=== PATIENT | male | born 1985 | race Caucasian/White ===

== ENCOUNTER 2018-12-06 18:29 | Observation (INO) | payer OTHER, MEDICAID, SELFPAY ==
[2018-12-06] VITALS (8 sets, daily range): BP systolic 120–150; BP diastolic 93–107; PULSE 90–113; RESP 15–20; TEMP 36.7; O2SAT 94–99; BMI 34.7
--- NOTE | 2018-12-06 18:43 | ED.RN ---
RN CALLED FOR EKG, PULLED OLD EKGS FOR
--- NOTE | 2018-12-06 19:11 | EKG12_ITS ---
Test Reason : CP Blood Pressure : / mmHG Vent. Rate : 100 BPM Atrial Rate : 100 BPM P-R Int : 156 ms QRS Dur : 096 ms QT Int : 336 ms P-R-T Axes : 037 029 024 degrees QTc Int : 433 ms Normal sinus rhythm Normal ECG Confirmed by KATY BARILLAS ([id number]), editor magazine SKYLER DAVIS ([id number]) on 12/09/2018 10:14:54 AM Referred By: CG Confirmed By:KATY BARILLAS
--- NOTE | 2018-12-06 19:11 | RAD_ITS ---
STUDY: X-RAY CHEST REASON FOR EXAM: Male, 33 years old. 5 TECHNIQUE: COMPARISON: None. FINDINGS: The lungs are clear and expanded. There is no demonstrated pleural abnormality. Normal size heart. Normal mediastinum and michael. Normal visualized pulmonary arteries. Normal visualized aortic arch and descending thoracic aorta. Normal visualized thoracic spine. Normal visualized ribs, clavicles, and shoulders. There is no demonstrated abnormality of the visualized soft tissue structures of the upper abdomen. RAD/Chest 1 View (Portable) IMPRESSION: Normal x-ray examination of the chest. Electronically Signed: Juan Mca DO at 19:36 EDT Tel [phone], Service support ,
--- NOTE | 2018-12-06 19:13 | ED.VISSUMM ---
- ER Visit Summary Date of Service: 12/06/18 Chief Complaint: Chest pain History of Present Illness: The patient is a 33 M presenting with chest pain. He states that started 3 days ago. Pain has been constant. He states it is in his right and left chest. He denies nausea, vomiting, diaphoresis, shortness of breath. He is tried no medication at home. He is a history of hypertension. He is noncompliant with medications. He is also a smoker. No other CAD risk factors. No PE/DVT risk factors. Physical Examination: Vitals are stable. Patient is afebrile. Alert no acute distress. HEENT exam is unremarkable. Neck is supple. Lungs are clear and equal bilaterally. Chest wall tenderness to palpation with no crepitus Heart is regular and tachycardic Abdomen is soft nontender nondistended. Extremities are unremarkable. Skin is warm and dry. No focal neurologic deficit. Remainder of exam is unremarkable. Emergency Department Course and Treatment: Patient was given IV fluids, aspirin, morphine, Zofran. Chest x-ray shows no acute process. EKG is sinus rhythm rate of 100 with no acute ischemic changes. CBC, chemistries unremarkable. D-dimer is 0.52. Troponin is negative. Due to elevated d-dimer, CTA chest is obtained and shows no acute process. Alcohol level 502. Repeat troponin negative. He was given Toradol IV, continues to complain of chest wall pain. He was given Valium. On reevaluation, patient is feeling improved. He is interested in alcohol detox. He states he was previously in detox and started drinking again recently. He denies history of alcohol withdrawal seizures. Discussed with the hospitalist for admission. Disposition: Admission Impression: Chest pain, alcohol abuse This note was generated with Volumental dictation software. It may contain incorrect words, spelling, and punctuation that were not noted in review of the chart prior to signing ED Disposition - Plan for ED Patient: Referrals: Care Physician,No Primary [Primary Care Provider] -
[2018-12-06] MEDS: 0.9% Normal Saline 1,000 ML 1000 ML IV (19:23)
[2018-12-06] MEDS: Ondansetron 4 MG/2 ML Vial IV (19:23)
[2018-12-06] MEDS: Morphine 4 MG/ML Syringe IV (19:24)
[2018-12-06] MEDS: Aspirin 81 MG TAB.CHEW 324 MG PO (19:25)
[2018-12-06 19:33] LABS: Basophil# 0.09 X10^3/uL; Basophil% 1.3 % (0-1); Eosinophil# 0.15 X10^3/uL; Eosinophils% 2.2 % (0-5); Hematocrit 44.7 % (40-54); Hemoglobin 15.4 g/dL (13.0-16.5); Lymphocyte % 37.3 % (19-41); Mean Corp Hgb Conc 34.5 g/dL (32-36); Mean Corpuscular Hgb 33.8 pg (27.0-32.0); Mean Platelet Vol. 9.1 fl (6.2-12.0); Monocyte# 0.98 X10^3/uL; Monocyte% 14.6 % (0-10); NRBC Flagged by Analyzer 0 % (0-5); Neutrophil # 2.98 X10^3/uL (2.7-7.7); Neutrophil % 44.5 % (47-70); Platelet Count 201 K/mm3 (150-450); RBC Distribution Width CV 12.9 % (11.6-14.6); Red Blood Count 4.56 M/mm3 (4.6-6.2); White Blood Count 6.7 K/mm3 (4.4-11.0)
[2018-12-06 19:46] LABS: D-Dimer Quantitative (DVT/PE) 0.52 FEU/ug/m (0.27-0.49)
--- NOTE | 2018-12-06 19:47 | ED.RN ---
CRITICAL LAB VALUE RECEIVED FROM LAB. D-DIMER 0.52. DR. LIN NOTIFIED.
[2018-12-06 19:57] LABS: Anion Gap 9 (5-15); BUN 11 mg/dL (7-18); BUN/Creat Ratio 11.6 RATIO (10-20); Calcium,Total 9.2 mg/dL (8.5-10.1); Chloride 109 mmol/L (98-107); Creatinine, Serum 0.95 mg/dL (0.70-1.30); EST Glomerular Filtration Rate 96 mL/min (>60); Est Glom Filt Rate - Afr Amer 117 mL/min (>60); Glucose 104 mg/dL (74-106); Potassium 3.5 mmol/L (3.5-5.1); Sodium Level 143 mmol/L (136-145)
--- NOTE | 2018-12-06 19:57 | CT_ITS ---
STUDY: CTA CHEST REASON FOR EXAM: Male, 33 years old. Dimer. Chest pain for 3 days. RADIATION DOSAGE (If Supplied By Facility): CTDIvol = ( 9.92 ) mGy, DLP = ( 536.85 ) mGycm TECHNIQUE: The examination was performed with the intravenous administration of IV 100mL [id number]-370 100ML. Post-processing of the angiographic images was performed, with multiplanar reformation and 3D reconstruction. Individualized dose optimization techniques were used for this CT. COMPARISON: Chest, December 06, 2018. FINDINGS: Normal enhancement of the main pulmonary artery and right and left pulmonary arteries. Normal enhancement of the bilateral peripheral pulmonary arteries. There is no demonstrated pulmonary embolism. Normal thoracic aorta and visualized great vessels. There is no demonstrated aortic dissection. Normal heart and pericardium. There are calcifications of the coronary arteries. Normal mediastinum. Normal hilar regions. Normal visualized trachea and bronchi. The lungs are well expanded. Normal pulmonary parenchyma. Normal pleura. Question minimal gynecomastia. The chest wall is otherwise unremarkable. Normal osseous structures. There is diffuse fatty infiltration of the liver which appears mildly enlarged. Abdomen is otherwise unremarkable. CT/CTA Chest W/WO Contrast IMPRESSION: 1. Normal CTA chest examination, without a demonstrated pulmonary embolism or arterial dissection. 2. Enlarged fatty infiltrated liver. Electronically Signed: Juan Mac DO at 20:37 EDT Tel [phone], Service support ,
[2018-12-06] MEDS: Ketorolac 30 MG/ML Syringe IV (20:32)
--- NOTE | 2018-12-06 20:47 | ED.RN ---
ALCOHOL LEVEL 502, DR. LIN AWARE.
[2018-12-06] MEDS: diazePAM 5 MG Tablet PO (21:46)
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
[2018-12-07] VITALS (9 sets, daily range): BP systolic 127–167; BP diastolic 86–106; PULSE 83–110; RESP 16–24; TEMP 36.4–37.1; O2SAT 96–100; BMI 34.1
[2018-12-07] MEDS: 0.9% Normal Saline 1,000 ML 999 ML IV ×2 (01:52→02:54)
[2018-12-07 02:00] LABS: Magnesium 1.8 mg/dL (1.6-2.6); Phosphorus 2.9 mg/dL (2.5-4.9)
[2018-12-07 02:02] LABS: AST(SGOT) 158 U/L (15-37); Alanine Aminotransfer ALT/SGPT 206 U/L (16-61); Albumin, Serum 3.7 g/dL (3.2-5.0); Alkaline Phosphatase 70 U/L (45-117); Bilirubin, Direct 0.24 mg/dL (0.00-0.30); Globulin 3.2 g/dL (2.2-4.2); Protein, Total 6.9 g/dL (6.4-8.2)
[2018-12-07] MEDS: Ibuprofen 600 MG Tablet PO ×3 (02:05→23:43)
[2018-12-07] MEDS: traZODone 50 MG Tablet PO ×2 (02:15→22:03)
[2018-12-07] MEDS: Methocarbamol 750 MG Tablet PO ×3 (02:15→18:44)
[2018-12-07] MEDS: 0.9% Normal Saline 1,000 ML 150 ML IV ×3 (04:03→18:35)
[2018-12-07] MEDS: chlordiazePOXIDE 25 MG Capsule PO ×4 (04:07→22:02)
[2018-12-07 07:15] LABS: ALB/GLOB Ratio 1.2 RATIO (0.9-2.4); AST(SGOT) 122 U/L (15-37); Alanine Aminotransfer ALT/SGPT 169 U/L (16-61); Albumin, Serum 3.1 g/dL (3.2-5.0); Alkaline Phosphatase 78 U/L (45-117); Anion Gap 10 (5-15); BUN 9 mg/dL (7-18); BUN/Creat Ratio 17.2 RATIO (10-20); Calcium,Total 7.6 mg/dL (8.5-10.1); Chloride 110 mmol/L (98-107); Creatinine, Serum 0.52 mg/dL (0.70-1.30); EST Glomerular Filtration Rate 192 mL/min (>60); Est Glom Filt Rate - Afr Amer 233 mL/min (>60); Estimated Creatinine Clearance 193.65 ml/min; Globulin 2.5 g/dL (2.2-4.2); Glucose 112 mg/dL (74-106); Potassium 3.4 mmol/L (3.5-5.1); Protein, Total 5.6 g/dL (6.4-8.2); Sodium Level 143 mmol/L (136-145)
[2018-12-07] MEDS: Multivitamins,Therapeutic Tablet 1 TABLET PO (10:07)
[2018-12-07] MEDS: Folic Acid 1 MG Tablet PO (10:07)
[2018-12-07] MEDS: Thiamine Hydrochloride 100 MG Tablet PO (10:07)
[2018-12-07] MEDS: hydrOXYzine PAM 25 MG Capsule 50 MG PO ×2 (10:08→18:44)
[2018-12-07] MEDS: Dicyclomine 10 MG Capsule 20 MG PO ×2 (10:08→18:44)
[2018-12-07 10:12] LABS: Amphetamine Urine VISTA NEGATIVE (<1000 ng/mL); Barbiturate Urine VISTA NEGATIVE (< 200 ng/mL); Benzodiazepine Urine VISTA POSITIVE (< 200 ng/mL); Cocaine Urine VISTA POSITIVE (< 300 ng/mL); Ecstacy Urine VISTA NEGATIVE (< 500 ng/mL); Methadone Urine VISTA NEGATIVE (< 300 ng/mL); PCP Urine VISTA NEGATIVE (< 25 ng/mL); THC Urine VISTA NEGATIVE (< 50 ng/mL); Vista UDS pH Range 5
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
--- NOTE | 2018-12-07 14:39 | PCM.PROGNOTE ---
Subjective: Chief complaint: Follow-up after admission for acute alcohol intoxication/withdrawal as well as atypical chest pressure. Patient seen and examined. No acute events overnight. Today, he is feeling better, chest pressure and discomfort improved. He still having hand tremors but he was able to sleep early this morning. Denies nausea or vomiting. Reported mild abdominal pain and cramps. His blood pressure has been slightly elevated, other vital signs are stable. - Physical Exam General: Alert, Oriented x3, Cooperative, No apparent distress, - - Hand tremors. HEENT: Atraumatic, PERRLA, EOMI, Normocephalic Oral: Moist Mucosa, No Gingival or Mucosal Lesions/ Ulcerations Neck: Supple, No JVD, Negative Carotid Bruits, Trachea Midline, Thyroid Normal Size and Texture Lungs: Clear to auscultation, Normal air movement, No rhonchi, No wheeze, No rales Cardiovascular: Regular rate, Regular Rhythm, Normal S1, Normal S2, PMI Normal Abdomen: Bowel Sounds Present, Soft, Non Tender, Non-Distended, No Hepato-splenomegaly, Obese Extremities: No clubbing, No cyanosis, No edema Skin: No rashes, No breakdown Lymphatic: No Cervical, Supraclavicular, or Inguinal Adenopathy Neurological: Cranial nerves II-XII grossly intact, Motor Exam 5/5 strength throughout Psych/Mental Status: Normal Affect, Appropriate, Alert and oriented to time, place, person, mood and affect Vital Signs Temp Pulse Resp BP Pulse Ox 97.6 F L 84 16 144/99 H 97 12/07/18 10:00 12/07/18 10:00 12/07/18 10:00 12/07/18 10:00 12/07/18 10:00 Oxygen Delivery Method Room Air Weight: 224 lb 6.889 oz Body Mass Index (BMI) 34.1 Intake and Output for Last 24 Hours 12/05/18 12/06/18 12/07/18 23:59 23:59 23:59 Intake Total 1000 / 1000 3407.5 / 3407.5 Balance 1000 / 1000 3407.5 / 3407.5 Laboratory Tests Past 24 Hrs 12/06/18 12/06/18 12/06/18 18:30 18:30 18:30 WBC 6.7 RBC 4.56 L Hgb 15.4 Hct 44.7 MCV 98.0 H MCH 33.8 H MCHC 34.5 RDW Std Deviation 46.0 H RDW Coeff of Alexandrea 12.9 Plt Count 201 MPV 9.1 Immature Gran % (Auto) 0.100 Neut % (Auto) 44.5 L Lymph % (Auto) 37.3 [place] % (Auto) 14.6 H Eos % (Auto) 2.2 Baso % (Auto) 1.3 H Absolute Neuts (auto) 3.0 Absolute Lymphs (auto) 2.50 Nucleated RBC % 0 D-Dimer Quant (PE/DVT) 0.52 H* Sodium 143 Potassium 3.5 Chloride 109 H Carbon Dioxide 25.0 Anion Gap 9 BUN 11 Creatinine 0.95 Estim Creat Clear Calc 106.00 Est GFR (MDRD) Af Amer 117 Est GFR (MDRD) Non-Af 96 BUN/Creatinine Ratio 11.6 Glucose 104 Calcium 9.2 Phosphorus Magnesium Total Bilirubin Direct Bilirubin AST ALT Alkaline Phosphatase Troponin I < 0.015 Total Protein Albumin Globulin Albumin/Globulin Ratio Urine Opiates Screen Urine Methadone Screen Ur Barbiturates Screen Ur Phencyclidine Scrn Ur Amphetamines Screen U Methamphetamin-MDMA U Benzodiazepines Scrn Urine Cocaine Screen U Cannabinoids Screen Ur Drug Screen Comment Ethyl Alcohol 12/06/18 12/06/18 12/06/18 18:30 21:48 21:48 WBC RBC Hgb Hct MCV MCH MCHC RDW Std Deviation RDW Coeff of Alexandrea Plt Count MPV Immature Gran % (Auto) Neut % (Auto) Lymph % (Auto) [place] % (Auto) Eos % (Auto) Baso % (Auto) Absolute Neuts (auto) Absolute Lymphs (auto) Nucleated RBC % D-Dimer Quant (PE/DVT) Sodium Potassium Chloride Carbon Dioxide Anion Gap BUN Creatinine Estim Creat Clear Calc Est GFR (MDRD) Af Amer Est GFR (MDRD) Non-Af BUN/Creatinine Ratio Glucose Calcium Phosphorus Magnesium Total Bilirubin 0.60 Direct Bilirubin 0.24 AST 158 H ALT 206 H Alkaline Phosphatase 70 Troponin I < 0.015 Total Protein 6.9 Albumin 3.7 Globulin 3.2 Albumin/Globulin Ratio Urine Opiates Screen Urine Methadone Screen Ur Barbiturates Screen Ur Phencyclidine Scrn Ur Amphetamines Screen U Methamphetamin-MDMA U Benzodiazepines Scrn Urine Cocaine Screen U Cannabinoids Screen Ur Drug Screen Comment Ethyl Alcohol 502.0 H* 12/06/18 12/07/18 12/07/18 21:48 05:52 05:52 WBC RBC Hgb Hct MCV MCH MCHC RDW Std Deviation RDW Coeff of Alexandrea Plt Count MPV Immature Gran % (Auto) Neut % (Auto) Lymph % (Auto) [place] % (Auto) Eos % (Auto) Baso % (Auto) Absolute Neuts (auto) Absolute Lymphs (auto) Nucleated RBC % D-Dimer Quant (PE/DVT) Sodium 143 Potassium 3.4 L Chloride 110 H Carbon Dioxide 23.0 Anion Gap 10 BUN 9 Creatinine 0.52 L Estim Creat Clear Calc 193.65 Est GFR (MDRD) Af Amer 233 Est GFR (MDRD) Non-Af 192 BUN/Creatinine Ratio 17.2 Glucose 112 H Calcium 7.6 L Phosphorus 2.9 Magnesium 1.8 Total Bilirubin 0.50 Direct Bilirubin AST 122 H ALT 169 H Alkaline Phosphatase 78 Troponin I Total Protein 5.6 L Albumin 3.1 L Globulin 2.5 Albumin/Globulin Ratio 1.2 Urine Opiates Screen Urine Methadone Screen Ur Barbiturates Screen Ur Phencyclidine Scrn Ur Amphetamines Screen U Methamphetamin-MDMA U Benzodiazepines Scrn Urine Cocaine Screen U Cannabinoids Screen Ur Drug Screen Comment Ethyl Alcohol 86.0 12/07/18 09:45 WBC RBC Hgb Hct MCV MCH MCHC RDW Std Deviation RDW Coeff of Alexandrea Plt Count MPV Immature Gran % (Auto) Neut % (Auto) Lymph % (Auto) [place] % (Auto) Eos % (Auto) Baso % (Auto) Absolute Neuts (auto) Absolute Lymphs (auto) Nucleated RBC % D-Dimer Quant (PE/DVT) Sodium Potassium Chloride Carbon Dioxide Anion Gap BUN Creatinine Estim Creat Clear Calc Est GFR (MDRD) Af Amer Est GFR (MDRD) Non-Af BUN/Creatinine Ratio Glucose Calcium Phosphorus Magnesium Total Bilirubin Direct Bilirubin AST ALT Alkaline Phosphatase Troponin I Total Protein Albumin Globulin Albumin/Globulin Ratio Urine Opiates Screen POSITIVE H Urine Methadone Screen NEGATIVE Ur Barbiturates Screen NEGATIVE Ur Phencyclidine Scrn NEGATIVE Ur Amphetamines Screen NEGATIVE U Methamphetamin-MDMA NEGATIVE U Benzodiazepines Scrn POSITIVE H Urine Cocaine Screen POSITIVE H U Cannabinoids Screen NEGATIVE Ur Drug Screen Comment Ethyl Alcohol Medical Necessity - Tobacco Use Smoking Status: Current every day smoker Tobacco Use: Cigarettes Assessment/Plan All Active Problems Alcohol withdrawal (Acute) This is a 53 years old male patient presented to the emergency room because of chest pressure and requested admission for alcohol detoxication. #1 acute alcohol intoxication/withdrawal: Blood alcohol level on admission was 502. Patient is on Ativan as needed, folic acid and thiamine as well as vitamin supplement. He still having hand tremors, restlessness. Blood pressure is elevated, no tachycardia. Urine drug screen was positive for opioids, benzodiazepines and cocaine. Routine blood work was unremarkable. LFT revealed elevated liver transaminases. Plan to continue same treatment. #2 atypical chest pressure: EKG without acute ischemic changes. Troponins negative x2. It is probably musculoskeletal pain, improved. #3 elevated blood pressure: With past history of hypertension and patient stopped taking his medication because it causes dizziness. Blood pressure has been in the 170s. Plan to start IV hydralazine PRN. #3 elevated LFT: This is secondary to alcoholic hepatitis. Will check pro time and INR. #5 alcohol abuse: Plan as above. #6 tobacco abuse: NicoDerm patch. #7 DVT prophylaxis: Low risk patient, no prophylaxis indicated. This note was generated with [employer] dictation software. It may contain incorrect words, spelling, and punctuation that were not noted in checking the note before signing. Code Visit Inpatient E&M: 14532 Subs Hosp L2
[2018-12-07] MEDS: Pantoprazole Sodium 40 MG Tablet PO ×2 (15:17→22:08)
[2018-12-07 15:44] LABS: International Normalized Ratio 1.1; Prothrombin Time (Protime)PT. 14.4 SECONDS (11.7-14.9)
--- NOTE | 2018-12-07 16:02 | CHAPLAIN ---
Type of Pastoral Visit _x__ Initial Visit ___ Follow-up Visit ___ On-call Visit ___ General Patient Visit ___ Spiritual Assessment ___ Family Conference ___ Bereavement ___ Rapid Response ___ Code Blue ___ Other (describe below) Pastoral Care Referral From _x__ Patient ___ Family ___ Nurse ___ Physician ___ Clinical Researcher ___ Basketball Commentator ___ Other (describe below) Sacrament/Intervention _x__ Active listening ___ Anointing ___ Anabaptist ___ Bereavement ___ Communion _x__ Kay exploration ___ _x__ Life review _x__ Prayer ___ Reconciliation ___ Sacrament of Sick _x__ Supportive presence ___ Wedding ___ Other (describe below) Pastoral Comments patient wants to talk and actively engages in conversation of personal history, increase of alcohol addiction, his past attempts at sobriety, and his own identification of emotional and spiritual issues that I will have to deal with but I am so stubborn; pt welcomes presence and prayer of clinical recruiter and future visits;
[2018-12-07] MEDS: Loperamide 2 MG Capsule PO (18:47)
[2018-12-07] MEDS: 0.9% Saline Lock 10 ML Syringe IV ×2 (22:14→22:45)
[2018-12-08] VITALS (8 sets, daily range): BP systolic 130–166; BP diastolic 79–117; PULSE 62–84; RESP 16–18; TEMP 36.6–36.9; O2SAT 95–100
[2018-12-08] LABS: Mucous, Urine 0 SEEN /hpf (<or=2+); Red Blood Cells-Urine 0 SEEN /hpf (0-5); Squamous Epithelial Cells - UA 0 SEEN /hpf (0-5); White Blood Cells 0 SEEN /hpf (0-5)
[2018-12-08 00:02] LABS: Color, Urine Yellow (Yellow); Glucose, Dipstick Normal (Normal); Ketone-Dipstick Negative (Negative); Leukocyte Esterase-Dipstick Negative /ul (Negative); Nitrite-Dipstick Negative (Negative); Occult Blood-Urine Negative /ul (Negative); Protein-Dipstick Negative (Negative); Specific Gravity, Urine 1.015 (1.002-1.030); Urine Bilirubin Dipstick Negative (Negative); Urine Clarity Clear (Clear); Urine Urobilinogen Normal (Normal)
[2018-12-08 00:15] LABS: Bacteria RARE /hpf (None Seen)
[2018-12-08] MEDS: 0.9% Normal Saline 1,000 ML 100 ML IV (04:31)
[2018-12-08] MEDS: Dicyclomine 10 MG Capsule 20 MG PO (06:05)
[2018-12-08] MEDS: Methocarbamol 750 MG Tablet PO (06:05)
[2018-12-08] MEDS: chlordiazePOXIDE 25 MG Capsule PO ×3 (06:05→21:07)
[2018-12-08] MEDS: Folic Acid 1 MG Tablet PO (08:34)
[2018-12-08] MEDS: Thiamine Hydrochloride 100 MG Tablet PO (08:34)
[2018-12-08] MEDS: Multivitamins,Therapeutic Tablet 1 TABLET PO (08:36)
[2018-12-08] MEDS: hydrOXYzine PAM 25 MG Capsule 50 MG PO (08:43)
[2018-12-08] MEDS: Pantoprazole Sodium 40 MG Tablet PO ×2 (08:44→21:07)
[2018-12-08] MEDS: Ibuprofen 600 MG Tablet PO ×2 (08:44→21:10)
[2018-12-08] MEDS: hydrALAZINE 20 MG/ML Vial 10 MG IV (08:45)
--- NOTE | 2018-12-08 09:10 | PCM.PROGNOTE ---
Subjective: Chief complaint: Follow-up after admission for acute alcohol intoxication/withdrawal, alcoholic hepatitis and uncontrolled hypertension. Patient seen and examined. No acute events overnight. He mentioned that he was able to sleep last night. Hand tremors is getting better. He complains of diarrhea x1 last night. Denies fever chills. His blood pressure still going up and down, goes up to 160s systolic. He does have a history of hypertension and he was on treatment before but he stopped taking it because it causes dizziness. Other vital signs are stable. - Physical Exam General: Alert, Oriented x3, Cooperative, No apparent distress HEENT: Atraumatic, PERRLA, EOMI, Normocephalic Oral: Moist Mucosa, No Gingival or Mucosal Lesions/ Ulcerations Neck: Supple, No JVD, Negative Carotid Bruits, Trachea Midline, Thyroid Normal Size and Texture Lungs: Clear to auscultation, Normal air movement, No rhonchi, No wheeze, No rales Cardiovascular: Regular rate, Regular Rhythm, Normal S1, Normal S2, PMI Normal Abdomen: Bowel Sounds Present, Soft, Non Tender, Non-Distended, No Hepato-splenomegaly, Obese Extremities: No clubbing, No cyanosis, No edema Skin: No rashes, No breakdown Lymphatic: No Cervical, Supraclavicular, or Inguinal Adenopathy Neurological: Cranial nerves II-XII grossly intact, Neuro grossly intact Psych/Mental Status: Normal Affect, Appropriate, Alert and oriented to time, place, person, mood and affect Vital Signs Temp Pulse Resp BP Pulse Ox 98.2 F 62 16 166/117 H 95 12/08/18 02:00 12/08/18 08:45 12/08/18 02:00 12/08/18 08:45 12/08/18 08:30 Oxygen Delivery Method Room Air Weight: 224 lb 6.889 oz Body Mass Index (BMI) 34.1 Intake and Output for Last 24 Hours 12/06/18 12/07/18 12/08/18 23:59 23:59 23:59 Intake Total 1000 / 1000 4407.5 / 5087.5 1680 / 1680 Output Total 0 / 0 Balance 1000 / 1000 4407.5 / 5087.5 1680 / 1680 Laboratory Tests Past 24 Hrs 12/07/18 12/07/18 12/07/18 09:45 15:19 23:45 PT 14.4 INR 1.1 Urine Color Yellow Urine Clarity Clear Urine pH 7.0 Ur Specific [place] 1.015 Urine Protein Negative Urine Glucose (UA) Normal Urine Ketones Negative Urine Occult Blood Negative Urine Nitrite Negative Urine Bilirubin Negative Urine Urobilinogen Normal Ur Leukocyte Esterase Negative Urine RBC 0 SEEN Urine WBC 0 SEEN Ur Squamous Epith Cells 0 SEEN Urine Bacteria RARE Urine Mucus 0 SEEN Urine Opiates Screen POSITIVE H Urine Methadone Screen NEGATIVE Ur Barbiturates Screen NEGATIVE Ur Phencyclidine Scrn NEGATIVE Ur Amphetamines Screen NEGATIVE U Methamphetamin-MDMA NEGATIVE U Benzodiazepines Scrn POSITIVE H Urine Cocaine Screen POSITIVE H U Cannabinoids Screen NEGATIVE Ur Drug Screen Comment Medical Necessity - Tobacco Use Smoking Status: Current every day smoker Tobacco Use: Cigarettes Assessment/Plan All Active Problems Alcohol withdrawal (Acute) This is a 53 years old male patient presented to the emergency room because of chest pressure and requested admission for alcohol detoxication. #1 acute alcohol intoxication/withdrawal: Started on Librium taper, on Ativan as needed. Also, he is on thiamine, folic acid and multivitamins. His blood pressure still fluctuating and elevated, other vital signs are stable, no tachycardia. Urine drug screen was positive for opioids, benzodiazepines and cocaine. Routine blood work was unremarkable. LFT revealed elevated liver transaminases. Plan to continue same treatment. #2 atypical chest pressure: EKG without acute ischemic changes. Troponins negative x2. It is probably musculoskeletal pain, improved. #3 Hypertension: Patient does have a history of hypertension but he is not taking his medications. He is not sure what medication he has been taking. His blood pressure still high and requiring IV hydralazine. Plan: Start Norvasc, continue IV hydralazine PRN. #3 elevated LFT: This is secondary to alcoholic hepatitis. Pro time and INR are normal. Liver transaminases are trending down. #5 alcohol abuse: Plan as above. #6 tobacco abuse: NicoDerm patch. #7 DVT prophylaxis: Low risk patient, no prophylaxis indicated. This note was generated with [employer] dictation software. It may contain incorrect words, spelling, and punctuation that were not noted in checking the note before signing. Code Visit Inpatient E&M: 64433 Subs Hosp L2
[2018-12-08] MEDS: amLODIPine 5 MG Tablet PO (11:06)
--- NOTE | 2018-12-08 16:05 | CHAPLAIN ---
Type of Pastoral Visit ___ Initial Visit _x__ Follow-up Visit ___ On-call Visit ___ General Patient Visit ___ Spiritual Assessment ___ Family Conference ___ Bereavement ___ Rapid Response ___ Code Blue ___ Other (describe below) Pastoral Care Referral From _x__ Patient ___ Family ___ Nurse ___ Physician ___ Cooler Servicer ___ Clutch Rebuilder ___ Other (describe below) Sacrament/Intervention _x__ Active listening ___ Anointing ___ Adventism ___ Bereavement ___ Communion _x__ Kay exploration ___ _x__ Life review _x__ Prayer ___ Reconciliation ___ Sacrament of Sick _x__ Supportive presence ___ Wedding ___ Other (describe below) Pastoral Comments patient is very willing to talk; pt has a plan to seek spiritual help and to reconnect with AA sponsor after admission here; pt seeks support for sobriety; pt welcomed literature to read and prayer;
[2018-12-08] MEDS: traZODone 50 MG Tablet PO (21:05)
[2018-12-09 02:08] VITALS: BP 157/102; PULSE 72; RESP 16; TEMP 36.6; O2SAT 100
[2018-12-09] MEDS: hydrOXYzine PAM 25 MG Capsule 50 MG PO ×2 (02:14→08:32)
[2018-12-09 04:11] VITALS: BP 150/102; PULSE 67
[2018-12-09] MEDS: hydrALAZINE 20 MG/ML Vial 10 MG IV (04:11)
[2018-12-09] MEDS: 0.9% Saline Lock 10 ML Syringe IV (04:12)
[2018-12-09 05:59] VITALS: BP 113/77; PULSE 75
[2018-12-09] MEDS: chlordiazePOXIDE 25 MG Capsule PO ×2 (06:04→17:43)
[2018-12-09 08:18] VITALS: BP 137/99; PULSE 89; RESP 18; TEMP 36.3; O2SAT 99
[2018-12-09] MEDS: Folic Acid 1 MG Tablet PO (08:21)
[2018-12-09] MEDS: Multivitamins,Therapeutic Tablet 1 TABLET PO (08:22)
[2018-12-09] MEDS: Thiamine Hydrochloride 100 MG Tablet PO (08:23)
[2018-12-09] MEDS: Ibuprofen 600 MG Tablet PO (08:32)
[2018-12-09] MEDS: Methocarbamol 750 MG Tablet PO ×2 (08:32→15:35)
[2018-12-09] MEDS: amLODIPine 5 MG Tablet PO (08:32)
[2018-12-09] MEDS: Pantoprazole Sodium 40 MG Tablet PO (08:33)
--- NOTE | 2018-12-09 09:45 | DCINST_ITS ---
- Discharge Diagnoses Current Active Problems: Current Active and Chronic Problems Tobacco use (Chronic) Alcohol abuse (Chronic) History of acute alcoholic hepatitis (Chronic) Obesity (BMI 30.0-34.9) (Chronic) You will use the following diet at home:: Cardiac Your food should be the consistency of: Regular Discharge Activity: Return to Normal Activity Weight Bearing Status: Full weight bearing Call your doctor if you observe: Fever of 101 or Higher, Shortness of breath, Dizziness, Fainting spells, Chest pain, Increased palpitations (irregular heartbeat), Uncontrolled pain Instructions: Controlling High Blood Pressure, Taking Your Blood Pressure, Taking Amlodipine, Recovering from Addiction: Continuing with Counseling Allergies/Adverse Reactions: Allergies Penicillins [PCN] Allergy (Verified 12/07/18 01:10) Unknown pt was a small child banana Adverse Reaction (Verified 12/07/18 01:11) Vomiting, sweating Medications to take at Discharge Multivitamins,Ther W-Minerals [Multivitamin With Minerals] 1 tab PO DAILYCM 12/07/18 Amlodipine [Norvasc] 5 mg PO DAILY #30 tab 12/09/18 Folic Acid 0.4 mg PO DAILY@0800 #30 tab 12/09/18 Pantoprazole Sodium [Protonix] 40 mg PO DAILY #30 tab 12/09/18 Thiamine HCl [Vitamin B-1] 100 mg PO DAILY #30 tab 12/09/18 Zolpidem Tartrate [Ambien (Generic)] 5 mg PO QHS PRN PRN #30 tab 12/09/18 traZODone [Desyrel] 50 mg PO QHS #30 tab 12/09/18 The following prescriptions were given: Zolpidem Tartrate [Ambien (Generic)] 5 mg PO QHS PRN PRN #30 tab PRN Reason: Insomnia Prescription Printed traZODone [Desyrel] 50 mg PO QHS #30 tab Transmission Status: Pending to [facility] Folic Acid 0.4 mg PO DAILY@0800 #30 tab Transmission Status: Pending to [facility] Amlodipine [Norvasc] 5 mg PO DAILY #30 tab Transmission Status: Pending to [facility] Pantoprazole Sodium [Protonix] 40 mg PO DAILY #30 tab Transmission Status: Pending to [facility] Thiamine HCl [Vitamin B-1] 100 mg PO DAILY #30 tab Transmission Status: Pending to [facility] Primary Care Physician: Care Physician,No Primary [Primary Care Provider] - Please follow up with your Primary Care Physician in: 1 week. Test Results: Test results from this visit will be discussed in further detail at your follow- up appointment, if applicable.
--- NOTE | 2018-12-09 11:10 | PCA ---
Called and scheduled an apt for a hosptial followup that he dont have a primary care i scheduled with Beatriz Porter
--- NOTE | 2018-12-09 12:01 | PCM.DC.SUM ---
Discharge Date and Diagnosis Date of Admission: 12/06/18 Date of Discharge: 12/09/18 - Primary Discharge Diagnosis #1 acute alcohol intoxication/withdrawal. #2 uncontrolled hypertension. #3 atypical chest pressure/ACS ruled out, attributed to musculoskeletal pain. #4 alcoholic hepatitis. - Secondary Discharge Diagnosis Chronic Problems Tobacco use (Chronic) Alcohol abuse (Chronic) History of acute alcoholic hepatitis (Chronic) Obesity (BMI 30.0-34.9) (Chronic) Hospital Course and Treatment Imaging Results: Clinical Impression(s) from Imaging Studies Chest X-Ray 12/06/18 19:11 IMPRESSION: Normal x-ray examination of the chest. Electronically Signed: Juan Mac DO at 19:36 EDT Tel [phone], Service support , Chest CTA 12/06/18 19:57 IMPRESSION: 1. Normal CTA chest examination, without a demonstrated pulmonary embolism or arterial dissection. 2. Enlarged fatty infiltrated liver. Electronically Signed: Juan Mac DO at 20:37 EDT Tel [phone], Service support , Operations: None Procedures: None Summary of Care Provided: Patient seen and examined on the day of discharge and appeared to be stable for discharge home. He complains of headache and diarrhea. However, he is feeling better. Blood pressure improved, other vital signs are stable. This is a 53 years old male patient presented to the emergency room because of chest pressure and requested admission for alcohol detoxication. #1 acute alcohol intoxication/withdrawal: Patient is a heavy drinker, blood alcohol level on admission was more than 500. Patient was treated with IV Ativan as needed initially for 24 hours and then started on Librium taper. He was treated with folic acid, thiamine and multivitamin as well. His urine drug screen was positive for opioids, benzodiazepines and cocaine although patient denied any history of drug use. His routine blood work was unremarkable. LFT revealed elevated transaminases. With treatment, patient symptoms improved and he passed the critical time for acute withdrawal. Patient discharged home in a stable medical condition, discharged on folic acid and thiamine, started on trazodone nightly as well as Ambien as needed for sleep. Plan is to follow-up with AA as outpatient. #2 atypical chest pressure: EKG without acute ischemic changes. Chest x-ray showed no acute findings. CTA chest showed no PE or dissection. Troponins negative x2. It is probably musculoskeletal pain. ACS ruled out. #3 Uncontrolled hypertension: Patient has a history of hypertension but he is not compliant. His blood pressure has been elevated during this hospital stay. He was started on Norvasc and also treated with IV hydralazine PRN. Patient was discharged on Norvasc 5 mg p.o. daily, recommended follow-up with PCP in 1 week. #3 elevated LFT: This is secondary to alcoholic hepatitis. Pro time and INR are normal. Liver transaminases trended down.. Patient discharged home in a stable medical condition, discharged on Norvasc for hypertension, discharged on trazodone and Ambien as needed for insomnia, discharged on folic acid, thiamine and multivitamins, plan to follow-up with AA program as outpatient as patient already have been involved on those programs, recommended follow-up with PCP in 1 week. This note was generated with [employer] dictation software. It may contain incorrect words, spelling, and punctuation that were not noted in checking the note before signing. - Physical Exam General: Alert, Oriented x3, Cooperative, No apparent distress HEENT: Atraumatic, PERRLA, EOMI, Normocephalic Oral: Moist Mucosa, No Gingival or Mucosal Lesions/ Ulcerations Neck: Supple, No JVD, Negative Carotid Bruits, Trachea Midline, Thyroid Normal Size and Texture Lungs: Clear to auscultation, Normal air movement, No rhonchi, No wheeze, No rales Cardiovascular: Regular rate, Regular Rhythm, Normal S1, Normal S2, PMI Normal Abdomen: Bowel Sounds Present, Soft, Non Tender, Non-Distended, No Hepato-splenomegaly, Obese Extremities: No clubbing, No cyanosis, No edema Skin: No rashes, No breakdown Lymphatic: No Cervical, Supraclavicular, or Inguinal Adenopathy Neurological: Cranial nerves II-XII grossly intact, Neuro grossly intact Psych/Mental Status: Normal Affect, Appropriate Vital Signs Temp Pulse Resp BP Pulse Ox 97.4 F L 89 18 137/99 H 99 12/09/18 08:18 12/09/18 08:18 12/09/18 08:18 12/09/18 08:18 12/09/18 08:18 Oxygen Delivery Method Room Air Weight: 224 lb 6.889 oz Body Mass Index (BMI) 34.1 Intake and Output for Last 24 Hours 12/07/18 12/08/18 12/09/18 23:59 23:59 23:59 Intake Total 4407.5 / 5087.5 2163.33 / 2163.33 480 / 480 Output Total 0 / 0 Balance 4407.5 / 5087.5 2163.33 / 2163.33 480 / 480 Discharge Activity: Return to Normal Activity Weight Bearing Status: Full weight bearing Call your doctor if you observe: Fever of 101 or Higher, Shortness of breath, Dizziness, Fainting spells, Chest pain, Increased palpitations (irregular heartbeat), Uncontrolled pain Home Medications: Medications to take at Discharge Multivitamins,Ther W-Minerals [Multivitamin With Minerals] 1 tab PO DAILYCM 12/07/18 Amlodipine [Norvasc] 5 mg PO DAILY #30 tab 12/09/18 Folic Acid 0.4 mg PO DAILY@0800 #30 tab 12/09/18 Pantoprazole Sodium [Protonix] 40 mg PO DAILY #30 tab 12/09/18 Thiamine HCl [Vitamin B-1] 100 mg PO DAILY #30 tab 12/09/18 Zolpidem Tartrate [Ambien (Generic)] 5 mg PO QHS PRN PRN #30 tab 12/09/18 traZODone [Desyrel] 50 mg PO QHS #30 tab 12/09/18 Following Prescrptions Were Given to Patient: Zolpidem Tartrate [Ambien (Generic)] 5 mg PO QHS PRN PRN #30 tab PRN Reason: Insomnia Prescription Printed traZODone [Desyrel] 50 mg PO QHS #30 tab Transmission Status: Received by [facility] Folic Acid 0.4 mg PO DAILY@0800 #30 tab Transmission Status: Received by [facility] Amlodipine [Norvasc] 5 mg PO DAILY #30 tab Transmission Status: Received by [facility] Pantoprazole Sodium [Protonix] 40 mg PO DAILY #30 tab Transmission Status: Received by [facility] Thiamine HCl [Vitamin B-1] 100 mg PO DAILY #30 tab Transmission Status: Received by [facility] Primary Care Physician: Care Physician,No Primary [Primary Care Provider] - Please follow up with your Primary Care Physician in: 1 week. Please Follow Up With: [facility] Patient Instructions: Controlling High Blood Pressure, Taking Amlodipine, Taking Your Blood Pressure, Recovering from Addiction: Continuing with Counseling Disposition: Home Minutes spent on discharge:: 31 Patient Condition:: Stable Medical Necessity - Tobacco Use Smoking Status: Current every day smoker Tobacco Use: Cigarettes Meaningful Use Info Meaningful Use Diagnoses (Choose all that apply): None applicable Code Visit Inpatient E&M: 76060 Disch Hosp
--- NOTE | 2018-12-09 12:19 | CASEMGMT ---
Social Work Note Pt provided Group Work Program Director Wilma with his medicaid number as pt called [facility]. Trona Wilma called Pharmacy and provided Pharmacy with medicaid number. Pt's medicaid number is [id number]. SW called [facility] and left message regarding pt's medicaid number. Joann Leal AUTOMATION CONTROLS SPECIALIST, FIELD SUPPORT REP
[2018-12-09 14:18] VITALS: BP 141/95; PULSE 84; RESP 18; TEMP 36.4; O2SAT 100
[2018-12-09 14:37] VITALS: O2SAT 98
== END 2018-12-09 18:30 | disposition home or self-care (01) | DRG 775 ==
LOC: ED 19:34 → MS3 12-07 00:41
PROVIDERS: Admitting Provider Family Medicine; Emergency Provider Emergency Medicine; Visit Provider Hospitalist
DX: F10.239 Alcohol dependence with withdrawal, unspecified (principal); F10.229 Alcohol dependence with intoxication, unspecified; K70.10 Alcoholic hepatitis without ascites; Y90.8 Blood alcohol level of 240 mg/100 ml or more; I10 Essential (primary) hypertension; E66.9 Obesity, unspecified; F17.210 Nicotine dependence, cigarettes, uncomplicated; R07.89 Other chest pain; Z68.34 Body mass index [BMI] 34.0-34.9, adult; Z91.14 Patient's other noncompliance with medication regimen; Z79.899 Other long term (current) drug therapy
CPT/HCPCS: 36415; 71045; 71275; 80048; 80053; 80076; 80307; 80320; 81001; 83735; 84100; 84484; 85025; 85379; 85610; 93005; 97802; 99218; 99285; 99406; J7030; Q9967; A4216; G0378; G0480; J2405